=== PATIENT | male | born 1955 | race Caucasian/White ===

== ENCOUNTER 2024-09-18 07:29 | Inpatient (IN) ==
[2024-09-18] MEDS: HYDROmorphone INJ 0.5 MG/0.5 ML SYR IV STA ×2 (08:05→09:08)
[2024-09-18] MEDS: KETOROLAC TROMETHAMINE 15 MG/ML VIAL IV STA (08:05)
[2024-09-18] MEDS: diazePAM 5 MG/ML 10ML VIAL IV STA (08:05)
[2024-09-18] MEDS: ONDANSETRON INJ 2 MG/ML 2 ML VIAL IV STA (08:05)
[2024-09-18] MEDS: SODIUM CHLORIDE 0.9% 500 ML IV ONE (08:06)
--- NOTE | 2024-09-18 08:14 | Emergency Department Note ---
ED Provider Note History of Present Illness Chief Complaint: Back Injury/Pain Time Seen by Provider: 09/18/24 07:35 68-year-old male who returns to the emergency department for evaluation of ongoing and progressively worsening pain radiating down his right leg down to his calf. The patient reports that he was seen in the emergency department 2 days ago with similar symptoms. The patient has been taking tramadol and corticosteroids at home as prescribed by his PCP. The patient denies any bladder/bowel incontinence, saddle anesthesias or noticeable foot drop. The patient reports that he is finding it more difficult to walk because of weakness in his right leg as well. Patient denies any fever or chills. The patient currently rates his discomfort a 6 out of 10. Home Medications Medication Instructions Recorded Confirmed Type rosuvastatin 5 mg tablet 5 mg PO DAILY #90 tabs 04/08/24 09/18/24 Rx pantoprazole 40 mg tablet,delayed 40 mg PO DAILY #90 tabs 07/04/24 09/18/24 Rx release albuterol sulfate 90 mcg/actuation 2 puff inhalation Q6H PRN 08/27/24 09/18/24 Rx aerosol inhaler shortness of breath or wheezing #8.5 grams prednisone 20 mg tablet 40 mg (2 x 20 mg) PO DAILY 5 days 09/14/24 09/18/24 Rx #10 tabs tramadol 50 mg tablet 50 mg PO BID PRN pain #30 tabs 09/16/24 09/18/24 Rx acetaminophen 500 mg tablet 500 mg PO Q6H PRN Pain 09/18/24 09/18/24 History ibuprofen 200 mg tablet (Advil) 200 mg PO Q6H PRN Pain 09/18/24 09/18/24 History Allergies Allergy/AdvReac Type Severity Reaction Status Date / Time moxifloxacin [From Avelox] Allergy Mild Rash Unverified 09/18/24 09:27 Past Med/Surg History Problem List Intractable low back pain (Acute) Right lumbar radiculitis (Acute) Displacement of lumbar intervertebral disc with myelopathy (Acute) Osteoarthritis of right hip (Acute) Right lumbar radiculitis (Acute) Family history of GERD Current use of proton pump inhibitor Elevated TSH Screening PSA (prostate specific antigen) Screening for thyroid disorder Screening for lipid disorders Preventative health care Well adult exam Medical History Dyslipidemia Surgical History History of dental surgery tooth implants No history of previous surgery Family History Father Myocardial infarction Denies family history of Ovarian cancer Prostate cancer Bipolar disorder Colorectal cancer Social History Smoking Status: Never smoker Second Hand Exposure: No; Do You Dip or Chew Tobacco: No; Hx Alcohol Use: Yes Alcohol type: wine and hard liquor Hx Substance Use: Yes Last Used Substance: Hours (ago) Preferred Language: Luxembourger Communication Ability: Effective Visual Impairment: No Limitations Hearing Ability: Normal Assurance Manager Required: No Beliefs That Will Affect Care: None marital status: Current Living Situation: Spouse current occupational status: employed Feels Safe at Home: Yes Dental Care, Regularly: Yes Physical Activity Frequency: Daily Seatbelt Use: always Assistive Devices: Glasses Physical Exam Vital Signs Vital Signs - 24 hr 09/18/24 07:24 09/18/24 07:35 09/18/24 07:35 Temperature 36.8 C Temperature Source Oral Pulse Rate 66 Pulse Rate from SpO2 Sensor Respiratory Rate 20 Blood Pressure 154/91 H 154/91 H 154/91 H Blood Pressure Mean 112 124 124 Pulse Oximetry 95 Sepsis Recent Fever Within 48 Hours No Sepsis New/Unexplained Change in Mental Status No Sepsis Action Taken by Nursing No Action Required 09/18/24 07:39 09/18/24 07:54 09/18/24 08:00 Temperature Temperature Source Pulse Rate 70 67 Pulse Rate from SpO2 Sensor 68 Respiratory Rate 13 Blood Pressure 150/88 H Blood Pressure Mean 110 Pulse Oximetry 93 Sepsis Recent Fever Within 48 Hours Sepsis New/Unexplained Change in Mental Status Sepsis Action Taken by Nursing 09/18/24 08:00 09/18/24 08:00 09/18/24 08:00 Temperature Temperature Source Pulse Rate Pulse Rate from SpO2 Sensor Respiratory Rate Blood Pressure 150/88 H 150/88 H 150/88 H Blood Pressure Mean 110 110 110 Pulse Oximetry Sepsis Recent Fever Within 48 Hours Sepsis New/Unexplained Change in Mental Status Sepsis Action Taken by Nursing 09/18/24 08:00 09/18/24 09:00 09/18/24 09:00 Temperature Temperature Source Pulse Rate 67 67 Pulse Rate from SpO2 Sensor 67 68 Respiratory Rate 15 17 Blood Pressure 149/84 H Blood Pressure Mean 96 Pulse Oximetry 95 97 Sepsis Recent Fever Within 48 Hours Sepsis New/Unexplained Change in Mental Status Sepsis Action Taken by Nursing 09/18/24 10:06 09/18/24 11:00 09/18/24 11:00 Temperature Temperature Source Pulse Rate Pulse Rate from SpO2 Sensor 66 69 Respiratory Rate Blood Pressure 144/82 H Blood Pressure Mean 93 Pulse Oximetry 95 94 Sepsis Recent Fever Within 48 Hours Sepsis New/Unexplained Change in Mental Status Sepsis Action Taken by Nursing 09/18/24 11:42 09/18/24 12:00 09/18/24 12:03 Temperature Temperature Source Pulse Rate Pulse Rate from SpO2 Sensor 69 71 Respiratory Rate Blood Pressure 133/85 Blood Pressure Mean 97 Pulse Oximetry 95 92 Sepsis Recent Fever Within 48 Hours Sepsis New/Unexplained Change in Mental Status Sepsis Action Taken by Nursing 09/18/24 13:00 09/18/24 13:00 09/18/24 13:00 Temperature Temperature Source Pulse Rate Pulse Rate from SpO2 Sensor 70 Respiratory Rate Blood Pressure 143/84 H 143/84 H Blood Pressure Mean 98 98 Pulse Oximetry 93 Sepsis Recent Fever Within 48 Hours Sepsis New/Unexplained Change in Mental Status Sepsis Action Taken by Nursing CONSTITUTIONAL: Healthy and well nourished. Patient appears in mild discomfort. HEENT: Mucous membranes are dry. No scleral icterus or conjunctival injection. RESPIRATORY: Clear to auscultation bilaterally with no wheezing, crackles, rhonchi or stridor. CARDIOVASCULAR: Regular rate and rhythm with no murmurs, rubs or gallops. GASTROINTESTINAL: Bowel sounds present in all quadrants. Abdomen is soft and nontender to palpation. MUSCULOSKELETAL: Examination shows the patient sitting in a Semi-Gomez's position with a blanket propped under his knee, holding his hip and knee at approximately 60 degrees of flexion. Any attempts to lower the patient into a full supine position causes notable discomfort, similar to his presentation from 2 days ago. Negative logroll of the right hip. Patient has tenderness to palpation through the lower lumbar spine and paraspinous muscle without obvious spasm. No soft tissue changes or erythema noted on the lower back region. Ankle plantar and dorsiflexion strength is 4 out of 5 bilaterally. INTEGUMENTARY: No rash or other significant dermatologic conditions noted. HEMATOLOGIC: No ecchymosis or petechiae. PSYCHIATRIC: Positive affect. NEUROLOGIC: Right lower extremity is sensory intact with deep tendon reflexes 1+ and symmetric bilaterally. Course Course Patient history and physical exam were performed. Nurses notes were reviewed. It is noted that I evaluated this patient in the emergency department 2 days ago. It is also noted that the patient had very difficult pain control in order to undergo CT imaging of his back and right hip, which showed a notable disc bulge at L4-5 and moderate osteoarthritis of the right hip. The patient essentially had to have the CT performed while laying in the left lateral recumbent position secondary to notable pain. The patient did require several rounds of IV analgesics and Valium in order to undergo CT imaging. Given the patient's worsening condition today, I did indicate that an MRI would be warranted, and that we would have to perform a similar pain management procedure in order to be able to perform the MRI. The patient was in agreement with this plan. IV access was established, and additional baseline labs were drawn. The patient was hydrated with normal saline 500 cc bolus, and administered IV Dilaudid, Toradol, Zofran and Valium. Review of labs showed a normal CBC, CMP and urinalysis other than 3+ glucosuria. With the medications provided, the patient was able to tolerate MRI imaging, with noncontrast MRI of the lumbar spine showing a diffuse disc bulge at L4-5, measuring 2.5 mm, with a right foraminal herniation/osteophyte complex measuring 5.9 mm, causing marked neuroforaminal stenosis. Patient has degenerative changes at other spine levels as well. Findings were discussed with the patient. I did discuss possible options for care, including surgical versus nonsurgical treatment, as well as outpatient versus inpatient management. The patient initially indicated that he would prefer to go home, however realized that he would not likely be able to ambulate at home like he did prior to his return to the emergency department today. We did a trial ambulation with a walker which was completely unsuccessful, as the patient was unable to apply any weight to the right lower extremity, and could only stand up in a forward flexed position. The patient then agreed to admission for intractable back pain. The case was also discussed with Dr. Ledesma, ED attending physician, who recommended consultation with the spine surgeon on- call. I did reach out to Dr. Cannon, who recommended admission for pain management, and he would consult the patient for possible pain management versus surgical management. He did recommend administering IV Decadron every 8 hours, along with oral Lyrica for symptomatic relief. At this point, the case was then discussed with the [facility] hospitalist team, who evaluated the patient and agrees with admission. Please see their dictation, as well as spine surgery dictations for further treatment and final disposition. Prior to transfer of care to the hospitalist service, the patient continued to report adequate pain control. Administered Medications Acetaminophen (Acetaminophen 500 Mg Tab) 1,000 mg PO Q8H ALEXEI Stop: 10/18/24 13:29 Last Admin: 09/18/24 15:06 Dose: 1,000 mg Documented By: YOON Discontinued Medications Dexamethasone Sodium Phosphate (DexamethasonePf 10 Mg/Ml Vial) 10 mg IV NOW ONE Stop: 09/18/24 12:43 Last Admin: 09/18/24 12:57 Dose: 10 mg Documented By: SINDY Diazepam (Diazepam 5 Mg/Ml 10ml Vial) 5 mg IV NOW STA Stop: 09/18/24 07:54 Last Admin: 09/18/24 08:05 Dose: 5 mg Documented By: SINDY Fentanyl Citrate (Fentanyl Citrate Pf 100 Mcg/2 Ml Vial) 50 mcg IV NOW STA Stop: 09/18/24 09:05 Last Admin: 09/18/24 09:12 Dose: Not Given Documented By: SINDY Hydromorphone HCl (Hydromorphone Inj 0.5 Mg/0.5 Ml Syr) 0.5 mg IV NOW STA Stop: 09/18/24 07:54 Last Admin: 09/18/24 08:05 Dose: 0.5 mg Documented By: SINDY Hydromorphone HCl (Hydromorphone Inj 0.5 Mg/0.5 Ml Syr) 0.5 mg IV NOW STA Stop: 09/18/24 09:06 Last Admin: 09/18/24 09:08 Dose: 0.5 mg Documented By: SINDY Sodium Chloride (Nss) 500 mls @ 999 mls/hr IV .Q31M ONE Stop: 09/18/24 08:23 Last Infusion: 09/18/24 13:09 Dose: Infused Documented By: Admin: 09/18/24 08:06 Dose: 999 mls/hr Documented By: SINDY Ketorolac Tromethamine (Ketorolac Tromethamine 15 Mg/Ml Vial) 15 mg IV NOW STA Stop: 09/18/24 07:54 Last Admin: 09/18/24 08:05 Dose: 15 mg Documented By: SINDY Ondansetron HCl (Ondansetron Inj 2 Mg/Ml 2 Ml Vial) 4 mg IV NOW STA Stop: 09/18/24 07:54 Last Admin: 09/18/24 08:05 Dose: 4 mg Documented By: SINDY Pregabalin (Pregabalin 50 Mg Cap) 50 mg PO NOW STA Stop: 09/18/24 12:43 Last Admin: 09/18/24 12:57 Dose: 50 mg Documented By: SINDY Medical Decision Making Medical Records Attestation: I reviewed the patient's medical records. Home Medications was personally reviewed by me Laboratory Data Attestation: I reviewed the patient's lab results. 09/18/24 07:59 09/18/24 07:59 Lab Results 09/18/24 09/18/24 Range/Units 07:59 13:08 WBC 8.16 (4.8-10.8) K/ul RBC 5.55 (4.70-6.10) M/uL Hgb 16.6 (14.0-18.0) g/dl Hct 48.1 (42.0-52.0) % MCV 86.7 (80.0-100.0) fL MCH 29.9 (25.0-34.0) pg MCHC 34.5 (32.0-36.0) g/dL RDW Std Deviation 40.0 (36.4-46.3) fL RDW Coeff of Dangelo 12.8 (11.5-14.5) % Plt Count 170 (130-400) K/uL MPV 10.5 (9.4-12.4) fL Immature Gran % (Auto) 0.2 % Neut % (Auto) 66.8 % Lymph % (Auto) 25.5 % Haskell % (Auto) 6.3 % Eos % (Auto) 0.5 % Baso % (Auto) 0.7 % Neut # (Auto) 5.45 (1.40-6.50) K/uL Lymph # (Auto) 2.08 (1.20-3.40) K/uL Haskell # (Auto) 0.51 (0.11-0.59) K/uL Eos # (Auto) 0.04 (0.00-0.50) K/uL Baso # (Auto) 0.06 (0.00-0.20) K/uL Immature Gran # (Auto) 0.02 (0.01-0.20) K/uL Sodium 140 (136-145) mmol/L Potassium 3.7 (3.5-5.1) mmol/L Chloride 108 H (98-107) mmol/L Carbon Dioxide 27 (21-32) mmol/L Anion Gap 5 (3-11) BUN 17 (6-23) mg/dl Creatinine 0.86 (0.6-1.4) mg/dl Est Cr Clr Drug Dosing 87.2 ml/min eGFR 95.50 BUN/Creatinine Ratio 19.8 (10-20) Glucose 108 H (70-99(Fasting)) mg/dl Calcium 9.0 (8.6-10.3) mg/dl Total Bilirubin 0.9 (0.2-1.0) mg/dl AST 21 (13-39) U/L ALT 35 (7-52) U/L Alkaline Phosphatase 44 (34-104) U/L Total Protein 6.5 (6.0-8.3) gm/dl Albumin 4.0 (3.4-5.0) gm/dl Globulin 2.5 (2.5-4.0) gm/dl Albumin/Globulin Ratio 1.6 (0.9-2) Urine Color Yellow Urine Appearance Clear (Clear) Urine pH 6.0 (4.5-7.5) Ur Specific Kopperl 1.027 (1.000-1.030) Urine Protein Negative (Negative) Urine Glucose (UA) 3+ H (Negative) Urine Ketones Trace H (Negative) Urine Blood Negative (Negative) Urine Nitrite Negative (Negative) Urine Bilirubin Negative (Negative) Urine Urobilinogen Negative (Negative) Ur Leukocyte Esterase Negative (Negative) Imaging Data Attestation: I personally reviewed and interpreted this imaging study as follows: My Impression: My interpretation of a noncontrast MRI of the lumbar spinen shows a diffuse disc bulge at L4-5, measuring 2.5 mm, with a right foraminal herniation/osteophyte complex measuring 5.9 mm, causing marked neuroforaminal stenosis. Patient has degenerative changes at other spine levels as well. Radiologist report was also reviewed with concurrence. Radiologist's Impression: Lumbar Spine MRI 09/18/24 07:53 EXAM: MR lumbar spine wo con CLINICAL HISTORY: Severe LBP, R lumbar radiculitis. TECHNIQUE: [id number] MRI of the lumbar spine was performed without the administration of intravenous contrast. Sequences obtained include sagittal T1-weighted, T2-weighted, STIR (Short Tau Inversion Recovery), and axial T1 /OBX.5.1.1OBX.5.1.2 T2-weighted sequences. Images were sent through PACS for diagnostic interpretation./OBX.5.1.2/OBX.5.1 COMPARISON: Prior CT lumbar spine dated 09/16/2024 was reviewed. FINDINGS: Vertebral Alignment: Normal alignment of the lumbar spine without evidence of fracture or malalignment. No evidence of scoliosis is observed. Straightened lumbar lordosis likely denoting myospasm. Vertebral Bodies and Intervertebral Discs: Minimal anterior height reduction of T11 body. Normal other vertebral body height, no fracture identified. No lytic or sclerotic lesions. Small marginal osteophytes and minimal fatty marrow degeneration of the opposing vertebral endplates. Mottled reduced T1 bone marrow signal suggesting osteoprosis. Intervertebral discs demonstrate desiccation at all levels. [id number] analysis: T12-L1: There is no significant disc pathology. No spinal canal stenosis. No neural foraminal stenosis.No ligamentum flavum hypertrophy and facet joint arthropathy. L1-L2: There is no significant disc pathology. No spinal canal stenosis. No neural foraminal stenosis.No ligamentum flavum hypertrophy and facet joint arthropathy. L2-L3: There is no significant disc pathology. No spinal canal stenosis. No neural foraminal stenosis.No ligamentum flavum hypertrophy and facet joint arthropathy. L3-L4: There is a diffuse disc bulge measuring 2 mm, effacing the adjacent epidural fat and causing bilateral mild neural foraminal stenosis. No spinal canal stenosis. No ligamentum flavum hypertrophy. Mild bilateral facet joint arthropathy. L4-L5: There is a diffuse disc bulge measuring 2.5 mm with right foraminal herniation/osteophyte complex measures 5.9 mm, effacing the ventral epidural fat, abutting the theca and causing marked right and mild left neural foraminal stenosis. No spinal canal stenosis. No ligamentum flavum hypertrophy. Mild bilateral facet joint arthropathy. L5-S1: There is a small focal central disc protrusion measuring 1.5 mm, partially encroaching upon the ventral epidural fat, not touching the theca or inducing spinal/neural foramen compromise. No spinal canal stenosis. No neural foraminal stenosis.No ligamentum flavum hypertrophy. Mild bilateral facet joint arthropathy. Spinal Cord and Nerve Roots: Conus medullaris terminates at the L1 level without abnormality. Nerve roots appear unremarkable bilaterally. The lower thoracic spinal cord, conus medullaris, and cauda equina nerve roots are unremarkable. Soft Tissues: Paraspinal soft tissues appear normal without evidence of abnormal signal intensity or mass lesions. IMPRESSION: 1. 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 2. Mottled reduced T1 bone marrow signal suggesting osteoprosis. Minimal anterior height reduction of T11 body. Electronically signed by Angélica Hernández 09-18-2024 10:36 AM MDM Narrative See ED Course section for further details of today's visit. The patient presents with complaint of intractable lower back pain. It is possible that the patient injured his back while he was vacationing 2 weeks ago. He has now been seen multiple times at an outpatient urgent care clinic, his PCP, and twice in the emergency department with intractable back pain. Since his last ED evaluation 2 days ago, the patient has been unable to ambulate at home, therefore returns via EMS for further evaluation. We were able to perform a noncontrast MRI of the lumbar spine today, showing notable right neuroforaminal stenosis secondary to a diffuse disc bulge with herniation/osteophyte complex, measuring 5.9 mm. The case was discussed with our spine surgeon on-call, who did recommend admission for pain management, and he will discuss further pain management versus operative management. The patient was in agreement with this plan as well. Labs today are not suggestive of infectious etiology. The patient is not febrile, nor does he have any skin findings or laboratory findings to suggest infection or sepsis. The case was also discussed with Dr. Ledesma, ED attending physician, who agrees with admission. Impression Displacement of lumbar intervertebral disc with myelopathy, Right lumbar radiculitis, Intractable low back pain Discharge Plan Visit Data Chief Complaint: Back Injury/Pain ED Provider: Jesus Ledesma ED Midlevel Provider: Erwin Gold Discharge Problem: Displacement of lumbar intervertebral disc with myelopathy, Right lumbar radiculitis, Intractable low back pain Patient Disposition: Admitted As Inpatient Discharge Instructions Interventions: ED Discharge Assessment Last Done: 09/18/24 14:12
[2024-09-18 08:28] LABS: Albumin Globulin Ratio 1.6 (0.9-2); BUN Creatinine Ratio 19.8 (10-20); Bilirubin,Total 0.9 mg/dl (0.2-1.0); Creatinine Clr Calc Pharmacy 87.2 ml/min; Globulin 2.5 gm/dl (2.5-4.0); Potassium 3.7 mmol/L (3.5-5.1); Total Protein 6.5 gm/dl (6.0-8.3)
[2024-09-18 08:29] LABS: Basophils # (auto) 0.06 K/uL (0.00-0.20); Basophils % (auto) 0.7 %; Eosinophils # (auto) 0.04 K/uL (0.00-0.50); Eosinophils % (auto) 0.5 %; Hematocrit (blood only) 48.1 % (42.0-52.0); Hemoglobin 16.6 g/dl (14.0-18.0); Immature Granulocytes # (auto) 0.02 K/uL (0.01-0.20); Immature Granulocytes % (auto) 0.2 %; Lymphocytes # (auto) 2.08 K/uL (1.20-3.40); Lymphocytes % (auto) 25.5 %; Mean Corpuscular Hemoglobin 29.9 pg (25.0-34.0); Mean Corpuscular Hgb Conc 34.5 g/dL (32.0-36.0); Mean Corpuscular Volume 86.7 fL (80.0-100.0); Mean Platelet Volume 10.5 fL (9.4-12.4); Monocytes # (auto) 0.51 K/uL (0.11-0.59); Monocytes % (auto) 6.3 %; Neutrophils # (auto) 5.45 K/uL (1.40-6.50); Neutrophils % (auto) 66.8 %; Platelet Count 170 K/uL (130-400); RDW Coefficient of Variation 12.8 % (11.5-14.5); Red Blood Count 5.55 M/uL (4.70-6.10); White Blood Count 8.16 K/ul (4.8-10.8)
[2024-09-18] MEDS: fentaNYL citrate PF 100 MCG/2 ML VIAL IV STA (09:12)
--- NOTE | 2024-09-18 10:39 | Magnetic Resonance Report ---
EXAM: MR lumbar spine wo con CLINICAL HISTORY: Severe LBP, R lumbar radiculitis. TECHNIQUE: [id number] MRI of the lumbar spine was performed without the administration of intravenous contrast. Sequences obtained include sagittal T1-weighted, T2-weighted, STIR (Short Tau Inversion Recovery), and axial T1 /OBX.5.1.1OBX.5.1.2 T2-weighted sequences. Images were sent through PACS for diagnostic interpretation./OBX.5.1.2/OBX.5.1 COMPARISON: Prior CT lumbar spine dated 09/16/2024 was reviewed. FINDINGS: Vertebral Alignment: Normal alignment of the lumbar spine without evidence of fracture or malalignment. No evidence of scoliosis is observed. Straightened lumbar lordosis likely denoting myospasm. Vertebral Bodies and Intervertebral Discs: Minimal anterior height reduction of T11 body. Normal other vertebral body height, no fracture identified. No lytic or sclerotic lesions. Small marginal osteophytes and minimal fatty marrow degeneration of the opposing vertebral endplates. Mottled reduced T1 bone marrow signal suggesting osteoprosis. Intervertebral discs demonstrate desiccation at all levels. Ecrrw-ca-pwvwe analysis: T12-L1: There is no significant disc pathology. No spinal canal stenosis. No neural foraminal stenosis.No ligamentum flavum hypertrophy and facet joint arthropathy. L1-L2: There is no significant disc pathology. No spinal canal stenosis. No neural foraminal stenosis.No ligamentum flavum hypertrophy and facet joint arthropathy. L2-L3: There is no significant disc pathology. No spinal canal stenosis. No neural foraminal stenosis.No ligamentum flavum hypertrophy and facet joint arthropathy. L3-L4: There is a diffuse disc bulge measuring 2 mm, effacing the adjacent epidural fat and causing bilateral mild neural foraminal stenosis. No spinal canal stenosis. No ligamentum flavum hypertrophy. Mild bilateral facet joint arthropathy. L4-L5: There is a diffuse disc bulge measuring 2.5 mm with right foraminal herniation/osteophyte complex measures 5.9 mm, effacing the ventral epidural fat, abutting the theca and causing marked right and mild left neural foraminal stenosis. No spinal canal stenosis. No ligamentum flavum hypertrophy. Mild bilateral facet joint arthropathy. L5-S1: There is a small focal central disc protrusion measuring 1.5 mm, partially encroaching upon the ventral epidural fat, not touching the theca or inducing spinal/neural foramen compromise. No spinal canal stenosis. No neural foraminal stenosis.No ligamentum flavum hypertrophy. Mild bilateral facet joint arthropathy. Spinal Cord and Nerve Roots: Conus medullaris terminates at the L1 level without abnormality. Nerve roots appear unremarkable bilaterally. The lower thoracic spinal cord, conus medullaris, and cauda equina nerve roots are unremarkable. Soft Tissues: Paraspinal soft tissues appear normal without evidence of abnormal signal intensity or mass lesions. IMPRESSION: 1. 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 2. Mottled reduced T1 bone marrow signal suggesting osteoprosis. Minimal anterior height reduction of T11 body. Electronically signed by Angélica Hernández 09-18-2024 10:36 AM
[2024-09-18] MEDS: dexAMETHasone**PF** 10 MG/ML VIAL IV ONE (12:57)
[2024-09-18] MEDS: PREGABALIN 50 MG CAP PO STA (12:57)
[2024-09-18] MEDS ORDERED: CYCLOBENZAPRINE HCL 10 MG TAB PO PRN (13:24)
--- NOTE | 2024-09-18 13:40 | Orthopedic Progress Note ---
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 24-48 hours of IV decadron, will hold NSAIDs in case any need for intervention, Lyrica 75mg BID, tizanidine prn muscle spasms. I discussed the nature of nerve compression and imaging findings. Hopefully he will respond to medication management. Will also consult physical therapy to help mobilize and learn home exercises. I have also placed a pain management consult to discuss the possibility of epidural injections. We briefly discussed surgery however will attempt to maximize other treatment options before considering surgery. Will follow along while in hospital. Subjective CC: Right Leg Pain HPI: Pleasant 68 year old gentleman presents to ER and admitted by hospitalist. He began experiencing pain originating in lumbar spine and radiating first into the hip region and progressing down the leg into thigh, anterior knee and then medial calf pain. He does not describe weakness, however severe pain limits ability to ambulate. Normal bladder function. He has been ambulating with walking sticks and in a forward flexed posture. No prior spine issues other than occasional back pain. Has been taking steroid at home, saw some improvement yesterday however pain worse today. He was recently evaluated by PCP earlier in week and ER two days ago. Review of Systems All systems reviewed & are unremarkable except as noted in HPI & below. Physical Exam 5/5 L2-S1 myotomes bilateral LE SILT L2-S1 with exception of decreased sensation right L4 No ankle clonus Constitutional WD/WN, vitals as above Neck normal visual inspection Respiratory normal respiratory effort Musculoskeletal Extremities: extremities normal to inspection Results & Data Results & Data Laboratory Results . Diagnostic Findings MRI lumbar spine available for review and interpreted personally. Significant motion artifact, severe right L4-5 foraminal stenosis due to osteophyte and disc bulge. 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
--- NOTE | 2024-09-18 13:47 | History & Physical Report ---
Date of Service September 18, 2024 Assessment & Plan (1) Right lumbar radiculitis: Plan This is an 68 year old male with past medical history of OA, HLD who presented to the ED on 09/18 for continued complaints of right back/hip/leg pain. Patient w/ failure of outpatient management of pain including Tylenol, Ibuprofen, Prednisone, and Tramadol. #Right lumbar Radiculitis Hip/pelvic CT 09/16 - mild-moderate OA right hip joint. No fractures within pelvis/hip Lumbar CT 09/16 - right lateral disc protrusion at L4-L5 could result in right L4 or L5 radiculopathy in appropriate clinical context. Lumbar MRI 09/18 - mild lumbar spondylodegenerative changes w/ disc pathologies at L3/4 down to L5/S1. More evident at L4-L5 w/ right foraminal herniation/osteophyte complex causing marked right neural foraminal stenosis. Mottled reduced T1 bone marrow signal suggesting osteoporosis. minimal anterior height reduction of T11 body Orthospine consulted, appreciate recommendations Pain management consulted, appreciate recommendations Continue scheduled Tylenol and ibuprofen Lyrica 75mg BID Dexamethasone 10mg IV q8h Oxycodone 5mg q4h prn Flexeril 10mg BID prn PT/OT consulted Chronic conditions: HLD: statin DVT prophylaxis: SCD's, hold chemical in event of surgery Code: DNR/DNI NPO after midnight in event of surgical intervention Case discussed w/ Dr. Darnell at time of admission. History of Present Illness Primary Care Provider: Renan Davila MD This is an 68 year old male with past medical history of OA, HLD who presented to the ED on 09/18 for continued complaints of right back/hip/leg pain. The patient was seen and examined, present. Patient reports that ~ 1 week ago he walked 4 miles at a quicker pace then usual. He then reports the following day he woke up in pain. He saw his PCP this past Thursday for this and was prescribed corticosteroids and tramadol. He was alternating Tylenol and ibuprofen every 4 hours as well. He then saw his PCP this past Thursday for continued symptoms and was referred for an x-ray. He was then referred to the ER from x-ray as he could not lie flat to take the imaging. He was then discharged. He reports this morning he was sleeping on the couch as he cannot get into bed at this time and could not get up to walk. EMS was then summoned and he was transported here. He reports he has attempted to walk with a walker in his room but is only able to walk a few steps and has to be hunch over. He reports it is painful to walk. He reports his pain 6/10. He denies any incontinence of bladder or bowel. He does report some right logan numbness which he stated was new for him today. While in the ED he underwent a lumbar MRI that revelaed L4-L5 foraminal herniation/ostephyte complex causing maked right neural foraminal stenosis. He was given dexamethasone, Toradol, Dilaudid, Lyrica, and Valium in the ED. Code status discussed and he reports he is a DNR/DNI status. Allergies Allergy/AdvReac Type Severity Reaction Status Date / Time moxifloxacin [From Avelox] Allergy Mild Rash Unverified 09/18/24 09:27 Home Medications Medication Instructions Recorded Confirmed Type rosuvastatin 5 mg tablet 5 mg PO DAILY #90 tabs 04/08/24 09/18/24 Rx pantoprazole 40 mg tablet,delayed 40 mg PO DAILY #90 tabs 07/04/24 09/18/24 Rx release albuterol sulfate 90 mcg/actuation 2 puff inhalation Q6H PRN 08/27/24 09/18/24 Rx aerosol inhaler shortness of breath or wheezing #8.5 grams prednisone 20 mg tablet 40 mg (2 x 20 mg) PO DAILY 5 days 09/14/24 09/18/24 Rx #10 tabs tramadol 50 mg tablet 50 mg PO BID PRN pain #30 tabs 09/16/24 09/18/24 Rx acetaminophen 500 mg tablet 500 mg PO Q6H PRN Pain 09/18/24 09/18/24 History ibuprofen 200 mg tablet (Advil) 200 mg PO Q6H PRN Pain 09/18/24 09/18/24 History methylprednisolone 4 mg tablet See Rx Instructions .Route 09/19/24 Rx (Medrol) .COMPLEX 18 days #63 tabs pregabalin 75 mg capsule (Lyrica) 75 mg PO BID #60 caps 09/19/24 Rx tizanidine 4 mg tablet 4 mg PO TID PRN muscle spasticity 02/24/25 Rx 10 days #30 tabs Past Med/Surg History Problem List Intractable low back pain (Acute) Right lumbar radiculitis (Acute) Displacement of lumbar intervertebral disc with myelopathy (Acute) Osteoarthritis of right hip (Acute) Right lumbar radiculitis (Acute) Family history of GERD Current use of proton pump inhibitor Elevated TSH Screening PSA (prostate specific antigen) Screening for thyroid disorder Screening for lipid disorders Preventative health care Well adult exam Medical History Dyslipidemia Surgical History History of dental surgery tooth implants No history of previous surgery Family History Father Myocardial infarction Denies family history of Ovarian cancer Prostate cancer Bipolar disorder Colorectal cancer Social History Smoking Status: Never smoker Second Hand Exposure: No; Do You Dip or Chew Tobacco: No; Hx Alcohol Use: Yes Alcohol type: wine and hard liquor Hx Substance Use: Yes Last Used Substance: Hours (ago) Preferred Language: Argentine Communication Ability: Effective Visual Impairment: No Limitations Hearing Ability: Normal Front Facer Required: No Beliefs That Will Affect Care: None marital status: Current Living Situation: Spouse current occupational status: employed Feels Safe at Home: Yes Dental Care, Regularly: Yes Physical Activity Frequency: Daily Seatbelt Use: always Assistive Devices: None Physical Exam Constitutional: WD/WN, vitals as above Eyes: PERRL, conjunctivae normal, anicteric sclerae Respiratory: normal respiratory effort, lungs clear to auscultation Cardiovascular: RRR, no murmur, no edema Musculoskeletal: 5/5 strength in b/l lower extremities Psychiatric: A+Ox3, euthymic affect Results & Data Results & Data Vital Signs (Past 12 Hours) Vital Signs Temp Pulse Resp BP Pulse Ox 09/18/24 07:39 70 09/18/24 07:24 36.8 C 66 20 154/91 H 95 Supervising Physician Co-Signing Physician Notes I personally saw and examined the patient. I independently reviewed the labs, EKG, imaging, problem list, medication list, past medical history and family history. I verified all gutierres points and agree with Arpita Bragg PA-C with the following exceptions and/or additions: 68-year-old male presents to the ER with right leg pain radiating from his lumbar spine to his hip region and medial part of his lower leg. No fever or chills. No recent weight loss. No loss of bladder or bowel control or perianal numbness. O/E HS RRR, no murmurs, Chest CTAB, Abdo SNT, pain and mild numbness present in an L4 distribution on his right leg, right leg exam limited by pain but appears to have normal hip flexion, ankle dorsi and plantarflexion A/P Lumbar radiculopathy - orthopedic wished to avoid NSAIDs in case of need of surgery, dexamethasone, acetaminophen, gabapentin switched to Lyrica by orthospine team, oxycodone as needed PG Care Time/CCT Total # of Minutes Spent Total Time Spent with Patient: Total time spent is greater than 50% in coordination of care (as documented) at patient's floor/unit and/or counseling patient: Coding Level of Care Code 72504 INT INP/OBS CARE MIN Diagnoses Right lumbar radiculitis M54.16
[2024-09-18 13:49] LABS: Appearance Urine Clear (Clear); Bilirubin Urine Negative (Negative); Blood Urine Negative (Negative); Color Urine Yellow; Glucose Urine UA 3+ (Negative); Ketones Urine Trace (Negative); Leukocyte Esterase Urine Negative (Negative); Nitrite Urine Negative (Negative); Protein Urine Negative (Negative); Specific Gravity Urine 1.027 (1.000-1.030); Urobilinogen Urine Negative (Negative)
[2024-09-18] MEDS ORDERED: IBUPROFEN 200 MG/10 ML UDC PO SCH (14:00)
[2024-09-18] MEDS ORDERED: IBUPROFEN 600 MG TAB PO SCH ×2 (14:00→21:00)
--- NOTE | 2024-09-18 14:10 | Emergency Department Note ---
ED Visit Note I was consulted in regards to the patient's presentation and plan of care by the Advanced Practice Provider. I engaged in a detailed/meaningful discussion with the Advanced Practice Provider in regards to this patient's workup and plan of care. I performed a substantiative portion of the medical decision making following discussion with the Advanced Practice Provider. Please see the Advanced Practice Provider's separate documentation for full details of the patient's visit. I agree with the assessment and plan of Erwin Gold PA-C. Jesus Ledesma, DO Emergency Medicine .
[2024-09-18] MEDS: ACETAMINOPHEN 500 MG TAB PO SCH (15:06)
[2024-09-18] MEDS: dexAMETHasone 10 MG in SYRINGE 0 ML IV SCH (16:01)
[2024-09-18] MEDS: PREGABALIN 75 MG CAP PO SCH (20:42)
[2024-09-18] MEDS ORDERED: GABAPENTIN 100 MG CAP PO SCH (21:00)
[2024-09-18] MEDS: oxyCODONE HCL IR 5 MG TAB (IMMEDIATE RELEASE) PO PRN (21:46)
--- NOTE | 2024-09-19 08:53 | Pain Management Consultation ---
Date of Consultation September 19, 2024 Assessment & Plan (1) Right lumbar radiculitis: Plan 1. Continue Lyrica 75mg BID, Oxycodone 5mg Q4 PRN, and Tizanidine 4mg TID. 2. Continue IV Dexamethasone. 3. There is a right sided disc herniation at L4-L5 that is the likely contributor to his symptoms. Recommend continuation of medications and physical therapy. If not improved, could consider a lumbar epidural steroid injection on an outpatient basis. Patient is in agreement with the plan. Thank you for the consultation. Please contact with any questions or concerns. History of Present Illness Attending Physician: Pavel Darnell MD History of Present Illness This is a 68-year-old male has been admitted to the [facility] for pain along the lateral aspect of the right calf. He describes a deep aching pain. There is minimal pain in the low back. No pain in the thigh. Pain is aggravated with weightbearing and standing up straight. Hunching forward and using a walker does provide mild pain relief. Pain started about 1 week ago. He was walking 4 miles and the next day he developed the pain. He did try steroids and tramadol as well as Tylenol and ibuprofen without any significant pain relief. He is unable to stand and walk so EMS to transport him to [facility]. No bowel/bladder incontinence, saddle anesthesia, foot drop, leg weakness, falls. Case discussed with Dr. Danica Erwin Allergies Allergy/AdvReac Type Severity Reaction Status Date / Time moxifloxacin [From Avelox] Allergy Mild Rash Unverified 09/18/24 09:27 Home Medications Medication Instructions Recorded Confirmed Type rosuvastatin 5 mg tablet 5 mg PO DAILY #90 tabs 04/08/24 09/18/24 Rx pantoprazole 40 mg tablet,delayed 40 mg PO DAILY #90 tabs 07/04/24 09/18/24 Rx release albuterol sulfate 90 mcg/actuation 2 puff inhalation Q6H PRN 08/27/24 09/18/24 Rx aerosol inhaler shortness of breath or wheezing #8.5 grams prednisone 20 mg tablet 40 mg (2 x 20 mg) PO DAILY 5 days 09/14/24 09/18/24 Rx #10 tabs tramadol 50 mg tablet 50 mg PO BID PRN pain #30 tabs 09/16/24 09/18/24 Rx acetaminophen 500 mg tablet 500 mg PO Q6H PRN Pain 09/18/24 09/18/24 History ibuprofen 200 mg tablet (Advil) 200 mg PO Q6H PRN Pain 09/18/24 09/18/24 History Patient History Medical History Dyslipidemia Surgical History History of dental surgery tooth implants No history of previous surgery Family History Father Myocardial infarction Denies family history of Ovarian cancer Prostate cancer Bipolar disorder Colorectal cancer Social History Smoking Status: Never smoker Second Hand Exposure: No; Do You Dip or Chew Tobacco: No; Hx Alcohol Use: Yes Alcohol type: wine and hard liquor Hx Substance Use: Yes Last Used Substance: Hours (ago) Preferred Language: Armenian Communication Ability: Effective Visual Impairment: No Limitations Hearing Ability: Normal Boom Supervisor Required: No Beliefs That Will Affect Care: None marital status: Current Living Situation: Spouse current occupational status: employed Feels Safe at Home: Yes Dental Care, Regularly: Yes Physical Activity Frequency: Daily Seatbelt Use: always Assistive Devices: Glasses Physical Exam Physical Exam: GENERAL: This is a 68 year old male in no acute distress. Sitting the a chair eating breakfast. HEAD/FACE: Normocephalic and atraumatic. EYES: No drainage or conjunctival injection. ENT: Nose without bleeding or discharge. Oral mucosa moist. RESPIRATORY: Patient with unlabored breathing. No signs of respiratory distress. CHEST/AXILLA: Chest movement symmetrical. No deformities noted. ABDOMEN/GI: No distension BACK: Moves without difficulty. There is no midline, facet joint or SI joint tenderness. No myofascial spasm or tenderness. SKIN: Day, warm and dry. No rash noted. MS/EXTREMITY: 5/5 strength of the lower extremities. Negative straight leg raise. Full range of motion of the right hip. No tenderness of the right greater trochanteric bursa. NEURO: Alert and appears oriented. Speech is fluent. Cranial Nerves are grossly intact. PSYCH: Alert, pleasant, affect is calm Results (Pain Clinic) Diagnostic Review MRI Findings: MR lumbar spine wo con CLINICAL HISTORY: Severe LBP, R lumbar radiculitis. TECHNIQUE: [id number] MRI of the lumbar spine was performed without the administration of intravenous contrast. Sequences obtained include sagittal T1-weighted, T2-weighted, STIR (Short Tau Inversion Recovery), and axial T1 /OBX.5.1.1OBX.5.1.2 T2-weighted sequences. Images were sent through PACS for diagnostic interpretation./OBX.5.1.2/OBX.5.1 COMPARISON: Prior CT lumbar spine dated 09/16/2024 was reviewed. FINDINGS: Vertebral Alignment: Normal alignment of the lumbar spine without evidence of fracture or malalignment. No evidence of scoliosis is observed. Straightened lumbar lordosis likely denoting myospasm. Vertebral Bodies and Intervertebral Discs: Minimal anterior height reduction of T11 body. Normal other vertebral body height, no fracture identified. No lytic or sclerotic lesions. Small marginal osteophytes and minimal fatty marrow degeneration of the opposing vertebral endplates. Mottled reduced T1 bone marrow signal suggesting osteoprosis. Intervertebral discs demonstrate desiccation at all levels. [id number] analysis: T12-L1: There is no significant disc pathology. No spinal canal stenosis. No neural foraminal stenosis.No ligamentum flavum hypertrophy and facet joint arthropathy. L1-L2: There is no significant disc pathology. No spinal canal stenosis. No neural foraminal stenosis.No ligamentum flavum hypertrophy and facet joint arthropathy. L2-L3: There is no significant disc pathology. No spinal canal stenosis. No neural foraminal stenosis.No ligamentum flavum hypertrophy and facet joint arthropathy. L3-L4: There is a diffuse disc bulge measuring 2 mm, effacing the adjacent epidural fat and causing bilateral mild neural foraminal stenosis. No spinal canal stenosis. No ligamentum flavum hypertrophy. Mild bilateral facet joint arthropathy. L4-L5: There is a diffuse disc bulge measuring 2.5 mm with right foraminal herniation/osteophyte complex measures 5.9 mm, effacing the ventral epidural fat, abutting the theca and causing marked right and mild left neural foraminal stenosis. No spinal canal stenosis. No ligamentum flavum hypertrophy. Mild bilateral facet joint arthropathy. L5-S1: There is a small focal central disc protrusion measuring 1.5 mm, partially encroaching upon the ventral epidural fat, not touching the theca or inducing spinal/neural foramen compromise. No spinal canal stenosis. No neural foraminal stenosis.No ligamentum flavum hypertrophy. Mild bilateral facet joint arthropathy. Spinal Cord and Nerve Roots: Conus medullaris terminates at the L1 level without abnormality. Nerve roots appear unremarkable bilaterally. The lower thoracic spinal cord, conus medullaris, and cauda equina nerve roots are unremarkable. Soft Tissues: Paraspinal soft tissues appear normal without evidence of abnormal signal intensity or mass lesions. IMPRESSION: 1. 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 2. Mottled reduced T1 bone marrow signal suggesting osteoprosis. Minimal anterior height reduction of T11 body. Electronically signed by Angélica Hernández 09-18-2024 10:36 AM
[2024-09-19] MEDS: ROSUVASTATIN CALCIUM 5 MG TAB PO SCH (09:27)
[2024-09-19] MEDS: PANTOprazole 40 MG TAB PO SCH (09:28)
--- NOTE | 2024-09-19 10:30 | Orthopedic Progress Note ---
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 With him being on the IV steroids and Lyrica, he is already noticing improvement of the radicular component pain, with no pain at rest. Pain management has offered to see the patient in their office should the medications and other conservative interventions not be as effective as desired. They did discuss a lumbar FLORY, for which the patient was educated is a good option for him should that become the decision. Due to the improvement thus far, currently no spine surgery is indicated. Discussed with the patient that all conservative treatment options should be exhausted prior to further consideration of spine surgery. Continue to hold NSAIDs in case the patient's symptoms would worsen. Patient has a previously scheduled visit tomorrow with Dr. Cannon, and we discussed pushing this visit back maybe 2 weeks to allow the medications and therapy mobilization and exercises time to work prior to following up in the orthospine clinic. Did encourage the patient that if he has any spasm like sensations, he should consider using the tizanidine, as it can work in conjunction with the other medications for better symptom control. Will send a prescription for an extended oral Medrol taper that the patient can start onto once he is discharged. Additionally, we will prescribe a short course of tizanidine muscle relaxer, as well as the Lyrica so that he could eventually taper off. Ok for discharge when pain controlled for outpatient follow up. Subjective . Patient states his pain is much improved today. He actually has none sitting in the bedside chair. However, he is still experiencing quite a bit of symptoms when he is active. When pain is the worst, he continues to describe the symptomatology and a right sided L4 distribution pattern. Pain management has been by this morning and discussed a possible lumbar FLORY as outpatient due to a right sided foraminal disc extrusion at L4-5. They noted that this procedure would be pursued if the oral medications and other conservative measures are ineffective, or if they do not provide an adequate level of relief. Review of Systems All systems reviewed & are unremarkable except as noted in HPI & below. Physical Exam GENERAL: Speech and cognition is intact. Mood and affect is appropriate. Does not appear in acute distress. Sitting in bedside chair and appears relatively comfortable. HEAD: Normocephalic; atraumatic. NECK: Trachea is midline. CHEST: Regular chest respiration and excursion. EXTREMITIES: No TTP. Distal sensation and pulses intact bilaterally. NEURO: CN II-XII grossly intact with no focal deficits noted. Awake, alert, and oriented x 3. Sensation intact to light touch of the bilateral L2-S1 dermatomes, however diminished to right L4 at the anteromedial tibia (patient states an old injury to this area that affected his sensation, so unsure if this is chronic or new). Negative clonus bilaterally SKIN: No lesions, erythema, or rashes noted. LOWER EXTREMITIES: R Hip flexion 5/5; hip extension 5/5; knee extension 5/5; knee flexion 5/5; ankle dorsiflexion 5/5; ankle plantar flexion 5/5; EHL 5/5 L Hip flexion 5/5; hip extension 5/5; knee extension 5/5; knee flexion 5/5; ankle dorsiflexion 5/5; ankle plantar flexion 5/5; EHL 5/5 Results & Data Results & Data Laboratory Results . Diagnostic Findings . Lumbar Spine MRI 09/18/24 07:53 EXAM: MR lumbar spine wo con CLINICAL HISTORY: Severe LBP, R lumbar radiculitis. TECHNIQUE: [id number].[id number].5.1.1An MRI of the lumbar spine was performed without the administration of intravenous contrast. Sequences obtained include sagittal T1-weighted, T2-weighted, STIR (Short Tau Inversion Recovery), and axial T1 /OBX.5.1.1OBX.5.1.2 T2-weighted sequences. Images were sent through PACS for diagnostic interpretation./OBX.5.1.2/OBX.5.1 COMPARISON: Prior CT lumbar spine dated 09/16/2024 was reviewed. FINDINGS: Vertebral Alignment: Normal alignment of the lumbar spine without evidence of fracture or malalignment. No evidence of scoliosis is observed. Straightened lumbar lordosis likely denoting myospasm. Vertebral Bodies and Intervertebral Discs: Minimal anterior height reduction of T11 body. Normal other vertebral body height, no fracture identified. No lytic or sclerotic lesions. Small marginal osteophytes and minimal fatty marrow degeneration of the opposing vertebral endplates. Mottled reduced T1 bone marrow signal suggesting osteoprosis. Intervertebral discs demonstrate desiccation at all levels. Mgeba-ba-abjqt analysis: T12-L1: There is no significant disc pathology. No spinal canal stenosis. No neural foraminal stenosis.No ligamentum flavum hypertrophy and facet joint arthropathy. L1-L2: There is no significant disc pathology. No spinal canal stenosis. No neural foraminal stenosis.No ligamentum flavum hypertrophy and facet joint arthropathy. L2-L3: There is no significant disc pathology. No spinal canal stenosis. No neural foraminal stenosis.No ligamentum flavum hypertrophy and facet joint arthropathy. L3-L4: There is a diffuse disc bulge measuring 2 mm, effacing the adjacent epidural fat and causing bilateral mild neural foraminal stenosis. No spinal canal stenosis. No ligamentum flavum hypertrophy. Mild bilateral facet joint arthropathy. L4-L5: There is a diffuse disc bulge measuring 2.5 mm with right foraminal herniation/osteophyte complex measures 5.9 mm, effacing the ventral epidural fat, abutting the theca and causing marked right and mild left neural foraminal stenosis. No spinal canal stenosis. No ligamentum flavum hypertrophy. Mild bilateral facet joint arthropathy. L5-S1: There is a small focal central disc protrusion measuring 1.5 mm, partially encroaching upon the ventral epidural fat, not touching the theca or inducing spinal/neural foramen compromise. No spinal canal stenosis. No neural foraminal stenosis.No ligamentum flavum hypertrophy. Mild bilateral facet joint arthropathy. Spinal Cord and Nerve Roots: Conus medullaris terminates at the L1 level without abnormality. Nerve roots appear unremarkable bilaterally. The lower thoracic spinal cord, conus medullaris, and cauda equina nerve roots are unremarkable. Soft Tissues: Paraspinal soft tissues appear normal without evidence of abnormal signal intensity or mass lesions. IMPRESSION: 1. 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 2. Mottled reduced T1 bone marrow signal suggesting osteoprosis. Minimal anterior height reduction of T11 body. Electronically signed by Angélica Hernández 09-18-2024 10:36 AM PG Care Time/CCT Total # of Minutes Spent Total Time Spent with Patient: Total time spent is greater than 50% in coordination of care (as documented) at patient's floor/unit and/or counseling patient: Coding Level of Care Code 32788 SUB INP/OBS CARE 08/20MIN Diagnoses Right lumbar radiculitis M54.16 Intractable low back pain M54.59 Displacement of lumbar intervertebral disc with myelopathy M51.06
[2024-09-19] MEDS: tiZANidine HCL 4 MG TABLET PO PRN (12:14)
--- NOTE | 2024-09-19 15:49 | Hospitalist Progress Note ---
Date of Service September 19, 2024 Assessment & Plan (1) Right lumbar radiculitis: Plan This is an 68 year old male with past medical history of OA, HLD who presented to the ED on 09/18 for continued complaints of right back/hip/leg pain. Patient w/ failure of outpatient management of pain including Tylenol, Ibuprofen, Prednisone, and Tramadol. #Right lumbar Radiculitis Hip/pelvic CT 09/16 - mild-moderate OA right hip joint. No fractures within pelvis/hip Lumbar CT 09/16 - right lateral disc protrusion at L4-L5 could result in right L4 or L5 radiculopathy in appropriate clinical context. Lumbar MRI 09/18 - mild lumbar spondylodegenerative changes w/ disc pathologies at L3/4 down to L5/S1. More evident at L4-L5 w/ right foraminal herniation/osteophyte complex causing marked right neural foraminal stenosis. Mottled reduced T1 bone marrow signal suggesting osteoporosis. minimal anterior height reduction of T11 body Ortho-spine consulted - recommending maximizing PO medication & pain management Pain management consulted - recommending maximizing PO medication, discussed w/ PA that patient will require an insurance auth prior to injection which could take up to a week to get approved. Continue scheduled Tylenol and ibuprofen Lyrica 75mg BID Dexamethasone 10mg IV q8h Oxycodone 5mg q4h prn Flexeril 10mg BID prn PT/OT consulted - consider short term rehab if patient cannot have pain under control. Chronic conditions: HLD: statin DVT prophylaxis: SCD's, hold chemical in event of surgery Code: DNR/DNI Case discussed w/ pain management ELISABET 09/19. Admission and Anticipated Discharge Date Admission Date: September 18, 2024 Subjective Patient seen and examined this afternoon. Patient reports he feels not much improvement from yesterday. He reports he is able to walk to the bathroom but has to remain hunched over. Patient reports as soon as he stands up he experiences severe pain. He does not feel his current regimen is working. Physical Exam Constitutional: WD/WN, vitals as above Eyes: PERRL, conjunctivae normal, anicteric sclerae Respiratory: breathing unlabored Cardiovascular: well perfused Musculoskeletal: moves all extremities Psychiatric: A+Ox3, euthymic affect Results & Data Results & Data Vital Signs (Past 12 Hours) Vital Signs Temp Pulse Resp BP Pulse Ox O2 Del Method 02/24/25 14:18 36.5 C 58 L 16 103/61 93 Room Air 09/19/24 08:15 Room Air 09/19/24 07:26 36.7 C 63 16 142/76 H 94 Room Air PG Care Time/CCT Total # of Minutes Spent Total Time Spent with Patient: Total time spent is greater than 50% in coordination of care (as documented) at patient's floor/unit and/or counseling patient: Coding Level of Care Code 83034 SUB INP/OBS CARE 2/35MIN Diagnoses Right lumbar radiculitis M54.16
[2024-09-20 07:16] VITALS: RESP 16
[2024-09-20] MEDS: DOCUSATE SODIUM/SENNA 50/8.6MG TAB PO SCH (08:04)
--- NOTE | 2024-09-20 08:48 | Pain Management Progress Note ---
Date of Service September 20, 2024 Assessment & Plan (1) Right lumbar radiculitis: Plan 1. Continue Lyrica 75mg BID, Oxycodone 5mg Q4 PRN, and Tizanidine 4mg TID. 2. Continue IV Dexamethasone. 3. Once the patient is discharged to home, arrangements will be made for the patient to come to the pain clinic for a new patient appointment and will then be arranged for an epidural steroid injection on a separate day. Admission and Anticipated Discharge Date Admission Date: September 18, 2024 Subjective Patient is reporting very mild improvement of symptoms. He is able to ambulate to the bathroom and back with the assistance of a walker. Tolerating medication regimen of Lyrica, oxycodone, tizanidine. Continues to work with physical therapy on improving ambulation. Physical Exam Physical Exam: GENERAL: This is a 68-year-old male in no acute distress. Sitting comfortably in the hospital bed eating breakfast. HEAD/FACE: Normocephalic and atraumatic. EYES: No drainage or conjunctival injection. ENT: Nose without bleeding or discharge. Oral mucosa moist. NECK: Full ROM without apparent pain. No swelling or masses noted. RESPIRATORY: Patient with unlabored breathing. No signs of respiratory distress. CHEST/AXILLA: Chest movement symmetrical. No deformities noted. ABDOMEN/GI: No distension BACK: Moves without difficulty SKIN: [place], warm and dry. No rash noted. MS/EXTREMITY: No swelling, no deformities. Moving extremities appropriately. NEURO: Alert and appears oriented. Speech is fluent. Cranial Nerves are grossly intact. PSYCH: Alert, pleasant, affect is calm
[2024-09-20] MEDS: oxyCODONE HCL IR 5 MG TAB (IMMEDIATE RELEASE) PO PRN ×2 (12:36→17:56)
--- NOTE | 2024-09-20 12:47 | Orthopedic Progress Note ---
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 We did discuss the possibility of surgery during his inpatient vs epidural injection. At this point, the patient prefers to continue to see how the medications help with his pain. He wishes to pursue the option of a lumbar FLORY as an outpatient at the pain management clinic prior to proceeding with any spine surgery. It is our recommendation that he pursue the pain management option at this point. From an orthospine standpoint, the patient is ok for discharge when pain is controlled to the point that he can safely be discharged for outpatient follow up. Subjective Patient states his pain remains improved, but only at rest. He really denies much of any pain when seated in a chair. However, when attempting to stand or ambulate or work with physical therapy, he begins to have severe pain. Again, when pain is the worst, he continues to describe the symptomatology in a right sided L4 distribution pattern. Pain management has stopped by again this morning and further discussed a possible lumbar FLORY as outpatient due to a right sided foraminal disc extrusion at L4-5. They have noted that the patient would need to be discharged, and once that occurs, they could get him set up with an outpatient visit at the pain clinic, and then after that initial consult visit, they would set him up for a lumbar FLORY. It is noted that the insurance authorization for an injection could take a week or more. That scenario was dis cussed in detail with the patient today, as well as his options for lumbar spine surgery should his pain remain severe enough that he could not be discharged. The patient did relate to me today that he wished to pursue a lumbar FLORY prior to proceeding with surgery. Review of Systems All systems reviewed & are unremarkable except as noted in HPI & below. Physical Exam GENERAL: Speech and cognition is intact. Mood and affect is appropriate. Does not appear in acute distress. Sitting in bedside chair and appears relatively comfortable. HEAD: Normocephalic; atraumatic. NECK: Trachea is midline. CHEST: Regular chest respiration and excursion. EXTREMITIES: No TTP. Distal sensation and pulses intact bilaterally. NEURO: CN II-XII grossly intact with no focal deficits noted. Awake, alert, and oriented x 3. Sensation intact to light touch of the bilateral L2-S1 dermatomes, however diminished at baseline to right L4 at the anteromedial tibia. Negative clonus bilaterally SKIN: No lesions, erythema, or rashes noted. LOWER EXTREMITIES: R Hip flexion 5/5; hip extension 5/5; knee extension 5/5; knee flexion 5/5; ankle dorsiflexion 5/5; ankle plantar flexion 5/5; EHL 5/5 L Hip flexion 5/5; hip extension 5/5; knee extension 5/5; knee flexion 5/5; ankle dorsiflexion 5/5; ankle plantar flexion 5/5; EHL 5/5 Results & Data Results & Data Laboratory Results . Diagnostic Findings . PG Care Time/CCT Total # of Minutes Spent Total Time Spent with Patient: Total time spent is greater than 50% in coordination of care (as documented) at patient's floor/unit and/or counseling patient: Coding [place] [address] SUB INP/OBS CARE 2/35MIN Patient Type Established Medical Decision Making Moderate Complexity Diagnoses Right lumbar radiculitis M54.16 Intractable low back pain M54.59 Displacement of lumbar intervertebral disc with myelopathy M51.06
--- NOTE | 2024-09-20 21:51 | Hospitalist Progress Note ---
Date of Service September 20, 2024 Assessment & Plan (1) Right lumbar radiculitis: Plan This is an 68 year old male with past medical history of OA, HLD who presented to the ED on 09/18 for continued complaints of right back/hip/leg pain. Patient w/ failure of outpatient management of pain including Tylenol, Ibuprofen, Prednisone, and Tramadol. Hip/pelvic CT 09/16 - mild-moderate OA right hip joint. No fractures within pelvis/hip Lumbar CT 09/16 - right lateral disc protrusion at L4-L5 could result in right L4 or L5 radiculopathy in appropriate clinical context. Lumbar MRI 09/18 - mild lumbar spondylodegenerative changes w/ disc pathologies at L3/4 down to L5/S1. More evident at L4-L5 w/ right foraminal herniation/osteophyte complex causing marked right neural foraminal stenosis. Mottled reduced T1 bone marrow signal suggesting osteoporosis. minimal anterior height reduction of T11 body #Right lumbar Radiculitis Orthospine consulted, appreciate recommendations Pain management consulted, appreciate recommendations Plan to maximize pain regimen and proceed with EIS outpatient with pain management prior to proceeding with surgical intervention Oxycodone increased to 5-10 mg for moderate-severe pain Continue scheduled Tylenol and ibuprofen, Lyrica 75mg BID, Flexeril 10mg BID prn Dexamethasone 10mg IV q8h discontinued by ortho PT/OT asked to re-eval patient to determine if he can return home or will need rehab placement Chronic conditions: HLD: continue statin DVT prophylaxis: SCD's, hold chemical in event of surgery Code: DNR/DNI Dispo: Continue to optimize pain regimen, awaiting re-evals from PT/OT Increased oxycodone Discussed case with ortho and pain management Updated at bedside Discussed discharge planning with case management Admission and Anticipated Discharge Date Admission Date: September 18, 2024 Supervising Physician Co-Signing Physician Notes I personally saw and examined the patient. I independently reviewed the labs, imaging, problem list, medication list. I verified all gutierres points and agree with Genesis Quiñonez PA-C with the following exceptions and/or additions: I met Xavier on admission as the supervising physician and he appeared very motivated to go home if possible and follow-up as an outpatient. However his pain is not controlled and he is using his right leg when ambulating around the room with a walker. We discussed extensively epidural spinal injections versus surgery. My concern is that his current state I am not sure he is really able to participate in physical therapy to the extent he would need to to improve due to the severity of his pain. I think at this point surgery seems like a reasonable option however he wishes to try to go home and try epidural spinal injections initially. I am not sure physical and Occupational Therapy have adequately assessed him for the discharge at this time as case management note shows home without services. I would highly recommend he gets physical therapy at home if he was to be discharged home although from my exam of watching him used to walk around the room he may benefit from inpatient rehab. We will ask him to be reassessed tomorrow and take it from there. Subjective Patient seen and evaluated at bedside this morning with his present. He reports that his pain is controlled at rest 0-1/10, but uncontrolled pain 7/10 with ambulation/activity. He has not yet had a BM, reports he took a laxative this morning. He states he is confused regarding the plan moving forward as he feels that he has received conflicting recommendations from ortho and pain management. Informed patient I will discuss with the specialists and confirm a plan. Returned to bedside in afternoon with attending physician, Dr. Darnell. We discussed the conversation I had with ortho and pain management. Xavier walked a round the room with limited mobility with rolling walker. He states he would like to try the epidural injection prior to proceeding with surgical intervention. Will ask PT/OT to re-eval to determine if patient can return home (1 step to enter main floor) vs needing rehab. No additional complaints or concerns at this time. Physical Exam Physical Exam: General: No acute distress, nondiaphoretic, well-developed, well-nourished. Cardiac: Well perfused. Rates in the 60s. Pulm: Normal respiratory effort. 94% on room air. Abdominal: Soft, nontender, nondistended. Bowel sounds present. Neuro: A&O x3. No focal neurological deficits. Back: No spinal tenderness. MSK/Extremities: Normal strength and sensation in LE bilaterally. Favors LLE with ambulation. Results & Data Results & Data Vital Signs (Past 12 Hours) Vital Signs Temp Pulse Resp BP BP Pulse Ox O2 Del Method 09/20/24 20:00 98.2 F 62 16 108/49 L 94 Room Air 09/20/24 15:07 97.9 F 68 16 128/75 95 Room Air PG Care Time/CCT Total # of Minutes Spent Total Time Spent with Patient: Total time spent is greater than 50% in coordination of care (as documented) at patient's floor/unit and/or counseling patient: Coding Level of Care Code 05542 SUB INP/OBS CARE 3/50MIN Diagnoses Right lumbar radiculitis M54.16
--- NOTE | 2024-09-21 08:33 | Pain Management Progress Note ---
Date of Service September 21, 2024 08:15 Assessment & Plan (1) Right lumbar radiculitis: Plan: * Had a lengthy discussion with the patient and his spouse this morning regarding his treatment alternatives. He prefers to try interventional pain management prior to considering surgery. * He is agreeable to be discharged today on oral oxycodone, tizanidine and pregabalin. * He will be scheduled undergo right L4/L5 transforaminal epidural steroid injection tomorrow in the pain clinic. Risks, benefits, alternatives discussed with the patient and his spouse. They are questions answered and he would like to proceed with the injection. Preprocedure instructions given. Present on Admission?: Yes Admission and Anticipated Discharge Date Admission Date: September 18, 2024 Subjective Patient was seen this morning for follow-up. He reports mild improvement in his radicular symptoms and that he has minimal pain in sitting position and less pain when he ambulates and bears weight on his right lower extremity. He reports less spasms in the lumbar spine. Pain is predominantly in the right lower back rating to the lateral aspect of his right thigh up to the knee. Denies any numbness, weakness, bowel or bladder incontinence. Has not required any oxycodone since yesterday evening and had his last dose of IV steroids yesterday. Overall, he notes some improvement. PG Care Time/CCT Total # of Minutes Spent Total Time Spent with Patient: Total time spent is greater than 50% in coordination of care (as documented) at patient's floor/unit and/or counseling patient: Coding Level of Care Code 97356 SUB INP/OBS CARE 08/20MIN Diagnoses Right lumbar radiculitis M54.16
[2024-09-21] MEDS: POLYETHYLENE (MIRALAX) 17 GM PACK PO SCH (10:00)
--- NOTE | 2024-09-21 10:10 | Orthopedic Progress Note ---
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 I do agree that as he is having significant improvement in his symptoms over the last few days it is a good idea to proceed with epidural injection. Grossly he is neurologically intact and making progress. Encouraged that he should be involved in outpatient physical therapy, get the epidural injection. I would plan to see him back about 2 weeks after the epidural injection. Subjective HPI: Patient was examined this morning, continues to have significant pain improvement over the last few days with steroid and neurolytic medications. Most of the pain is now associated with activity. He has discussed with pain management and would like to proceed with outpatient epidural injection. Review of Systems All systems reviewed & are unremarkable except as noted in HPI & below. Physical Exam Constitutional: Well developed, appears stated age Psych: patient is coherent and answers questions appropriately, normal affect Eye: Normal gaze, no redness to sclera, pupils round and equal Pulm: Normal respiratory effort, no wheezing Cardiovascular: no significant peripheral edema, palpable DP/PT pulses Skin shows no rashes, lesions No midline or paraspinal tenderness with palpation over the lumbar spine, no stepoffs Motor strength is 5/5 in bilateral hip flexors, quadriceps, tibialis anterior, extensor hallucis longus, and gastroc/soleus complex Sensation intact to light touch in the L2-S1 dermatomes bilaterally Results & Data Results & Data Laboratory Results . Diagnostic Findings . PG Care Time/CCT Total # of Minutes Spent Total Time Spent with Patient: Total time spent is greater than 50% in coordination of care (as documented) at patient's floor/unit and/or counseling patient: Coding Level of Care Code 68381 SUB INP/OBS CARE 08/20MIN Diagnoses Right lumbar radiculitis M54.16 Intractable low back pain M54.59 Displacement of lumbar intervertebral disc with myelopathy M51.06
[2024-09-21 13:38] VITALS: BP 126/82; PULSE 87; TEMP 97.9; O2SAT 96
--- NOTE | 2024-09-21 17:41 | Discharge Summary ---
Discharge Summary Date of Service September 21, 2024 Principal Dx & Hospital Course #1 = Principal Diagnosis (1) Right lumbar radiculitis: Plan This is an 68 year old male with past medical history of OA, HLD who presented to the ED on 09/18 for continued complaints of right back/hip/leg pain. Patient w/ failure of outpatient management of pain including Tylenol, Ibuprofen, Prednisone, and Tramadol. Hip/pelvic CT 09/16 - mild-moderate OA right hip joint. No fractures within pelvis/hip Lumbar CT 09/16 - right lateral disc protrusion at L4-L5 could result in right L4 or L5 radiculopathy in appropriate clinical context. Lumbar MRI 09/18 - mild lumbar spondylodegenerative changes w/ disc pathologies at L3/4 down to L5/S1. More evident at L4-L5 w/ right foraminal herniation/osteophyte complex causing marked right neural foraminal stenosis. Mottled reduced T1 bone marrow signal suggesting osteoporosis. minimal anterior height reduction of T11 body #Right lumbar Radiculitis Orthospine and pain management followed along while hospitalized to coordinate care Plan is to maximize pain regimen and proceed with FLORY outpatient with pain management prior to proceeding with surgical intervention Pain decently controlled with current regimen that was continued on discharge Continue scheduled Tylenol 1000 mg q8h, Lyrica 75 mg bid, Medrol taper, Zanaflex TID prn muscle spasms, oxycodone 5-10 mg q4h prn mod-severe pain Cleared by PT to return home Scheduled for FLORY with pain management 09/22/24 Recommend follow-ups with orthospine, PCP, and pain management outpatient Chronic conditions: HLD: continue statin DVT prophylaxis: SCD's Code: DNR/DNI Dispo: Discharged home 09/21 Notes For Next Care Provider Consider surgical intervention with orthospine if no relief from FLORY with pain management Medication Changes From Visit Lyrica 75 mg twice daily Medrol taper Zanaflex 3 times daily as needed muscle spasm Oxycodone 5-10 mg every 4 hours as needed moderatesevere pain Admission HPI Per Admitting Provider This is an 68 year old male with past medical history of OA, HLD who presented to the ED on 09/18 for continued complaints of right back/hip/leg pain. The patient was seen and examined, present. Patient reports that ~ 1 week ago he walked 4 miles at a quicker pace then usual. He then reports the following day he woke up in pain. He saw his PCP this past Thursday for this and was prescribed corticosteroids and tramadol. He was alternating Tylenol and ibuprofen every 4 hours as well. He then saw his PCP this past Thursday for continued symptoms and was referred for an x-ray. He was then referred to the ER from x-ray as he could not lie flat to take the imaging. He was then discharged. He reports this morning he was sleeping on the couch as he cannot get into bed at this time and could not get up to walk. EMS was then summoned and he was transported here. He reports he has attempted to walk with a walker in his room but is only able to walk a few steps and has to be hunch over. He reports it is painful to walk. He reports his pain 6/10. He denies any incontinence of bladder or bowel. He does report some right logan numbness which he stated was new for him today. While in the ED he underwent a lumbar MRI that revelaed L4-L5 foraminal herniation/ostephyte complex causing maked right neural foraminal stenosis. He was given dexamethasone, Toradol, Dilaudid, Lyrica, and Valium in the ED. Code status discussed and he reports he is a DNR/DNI status. Discharge Exam General: No acute distress, nondiaphoretic, well-developed, well-nourished. Cardiac: Well perfused. Rates in the 60s. Pulm: Normal respiratory effort. 94% on room air. Abdominal: Soft, nontender, nondistended. Bowel sounds present. Neuro: A&O x3. No focal neurological deficits. Back: No spinal tenderness. MSK/Extremities: Normal strength and sensation in LE bilaterally. Discharge Plan Discharge Items Patient Disposition: Home - Self-Care Reason For Visit: BACK PAIN Discharge Diagnosis: Right lumbar radiculitis Activity: Per Instructions section Non-emergency contact: Primary Care Provider, Surgeon and Pain Management Call non-emergency contact if: you have any medication questions, your symptoms worsen and your pain is not controlled Follow-up/Referrals: Renan Davila MD [Primary Care Provider] - 09/27/24 12:00 pm (Follow-up in 1-2 weeks) Edilberto Johnson MD, FIPP [Physician] - 09/22/24 (Follow-up as scheduled) Adrián Cannon MD [Surgeon] - (f/u in spine clinic ~2 weeks after discharge) Diet: Regular Addtl Attending Provider Instructions: Xavier, You were admitted to the hospital due to severe lumbar back pain. You had an MRI of your lumbar spine which revealed marked right neural foraminal stenosis, which explains your symptoms of severe right back/hip/leg pain. Your medical pain regimen was optimized during this hospitalization, and you were also evaluated by PT/OT who felt you are safe to return home. You were evaluated by the pain management specialists as well as the orthopedic spine surgical specialists. You have been scheduled for an epidural steroid injection (FLORY) at the pain management clinic tomorrow, 09/22/2024. Your prescriptions have been sent to the [facility] pharmacy on [facility]. Upon discharge from the hospital: * Take Tylenol 1000 mg every 8 hours. Use this as your first-line pain medication. * Take the Medrol (oral steroid) taper as directed on the package insert. * Take Lyrica 75 mg twice daily. This helps with nerve pain. * Take Zanaflex 4 mg 3 times daily NEEDED for muscle spasms. * Take oxycodone 5-10 mg every 4 hours NEEDED for severe pain. This is a narcotic pain medication, so do NOT drive or operate heavy machinery while taking this. * Recommend following a bowel regimen (MiraLAX, Senna, docusate, etc.) to prevent constipation while taking pain medication. These are available over the counter (OTC), so no prescription is needed. * Follow-up with the pain management clinic as scheduled tomorrow 09/22/24 for your epidural steroid injection. * Follow-up with your PCP in 1-2 weeks. * Follow-up with the ortho spine surgical team as scheduled. It was a pleasure taking care of you while you were in the hospital! Pending Studies at Discharge: No Stand-Alone Forms: My Guide, Smoking Cessation Medications and DC Order Prescriptions: New pregabalin [Lyrica] 75 mg Capsule 75 mg PO BID Qty: 60 0RF tizanidine 4 mg Tablet 4 mg PO TID PRN (Reason: muscle spasticity) 10 Days Qty: 30 0RF methylprednisolone [Medrol] 4 mg tablet See Rx Instructions .ROUTE .COMPLEX 18 Days Qty: 63 0RF Rx Instructions: 4 mg tabs orally; 18-day taper -- 6 tabs (24 mg) x 3 days, then 5 tabs (20 mg) x 3 days, then 4 tabs (16 mg) x 3 days, then 3 tabs (12 mg) x 3 days, then 2 tabs (8 mg) x 3 days, then 1 tab (4 mg) x 3 days acetaminophen [Tylenol Extra Strength] 500 mg Tablet 1,000 mg PO Q8H Qty: 90 0RF polyethylene glycol 3350 [Miralax] 17 gram Powder In Packet 17 g PO DAILY Qty: 30 0RF sennosides-docusate sodium [Senokot-S] 8.6-50 mg Tablet 1 tab PO QAM Qty: 20 0RF oxycodone 5 mg tablet 5 - 10 mg PO Q4H PRN (Reason: severe pain (scale score 7-10)) Qty: 14 0RF Continued pantoprazole 40 mg tablet,delayed release (DR/EC) 40 mg PO DAILY Qty: 90 3RF rosuvastatin 5 mg tablet 5 mg PO DAILY Qty: 90 3RF albuterol sulfate 90 mcg/actuation HFA aerosol inhaler 2 puff inhalation Q6H PRN (Reason: shortness of breath or wheezing) Qty: 8.5 0RF ibuprofen [Advil] 200 mg Tablet 200 mg PO Q6H PRN (Reason: Pain) Held tramadol 50 mg tablet 50 mg PO BID PRN (Reason: pain) Qty: 30 0RF Hold Instructions: Provider's Order Discontinued prednisone 20 mg tablet 40 mg PO DAILY 5 Days Qty: 10 0RF Rx Instructions: Start Date 09/14/24 x5 day supply acetaminophen [Tylenol Ex Str Rapid Release] 500 mg Tablet 500 mg PO Q6H PRN (Reason: Pain) Discharge Orders: Discharge Order (Routine); Ordered 09/21/24 Ordered By: Genesis Pennington/Other Patient Handouts: Relieving Back Pain Admission Data Admit Date/Time: 09/18/24 13:24 Attending Provider: Ruben Alcaraz Admit Provider: Pavel Darnell Primary Care Provider: Renan Davila Other Providers: Yogi Suggs; Danica Erwin; Edilberto Johnson; Adrián Yang; Olamide Rome; Hima Lake; Adrián Cannon Other Interventions: Discharge Summary Assessment (RN) Last Done: 09/21/24 11:46 Hospital Stay Data Consultations 09/18/24 12:42 ED Decision to Admit Stat 09/18/24 12:45 Consult Orthopedic Spine Surgery Stat 09/18/24 13:41 Consult Pain Management Routine 09/18/24 14:38 Consult Pain Management Routine Diagnostic Imagining Performed 09/18/24 07:53 MRI Lumbar Spine [MR lumbar spine wo con] Stat Pending Results Patient Have Any Pending Studies at Discharge: No Discharge Instructions Given to Patient (Per Discharging Provider) Manuel [place] were admitted to the hospital due to severe lumbar back pain. You had an MRI of your lumbar spine which revealed marked right neural foraminal stenosis, which explains your symptoms of severe right back/hip/leg pain. Your medical pain regimen was optimized during this hospitalization, and you were also evaluated by PT/OT who felt you are safe to return home. You were evaluated by the pain management specialists as well as the orthopedic spine surgical specialists. You have been scheduled for an epidural steroid injection (FLORY) at the pain management clinic tomorrow, 09/22/2024. Your prescriptions have been sent to the [facility] pharmacy on [address] Upon discharge from the hospital: * Take Tylenol 1000 mg every 8 hours. Use this as your first-line pain medication. * Take the Medrol (oral steroid) taper as directed on the package insert. * Take Lyrica 75 mg twice daily. This helps with nerve pain. * Take Zanaflex 4 mg 3 times daily NEEDED for muscle spasms. * Take oxycodone 5-10 mg every 4 hours NEEDED for severe pain. This is a narcotic pain medication, so do NOT drive or operate heavy machinery while taking this. * Recommend following a bowel regimen (MiraLAX, Senna, docusate, etc.) to prevent constipation while taking pain medication. These are available over the counter (OTC), so no prescription is needed. * Follow-up with the pain management clinic as scheduled tomorrow 09/22/24 for your epidural steroid injection. * Follow-up with your PCP in 1-2 weeks. * Follow-up with the ortho spine surgical team as scheduled. It was a pleasure taking care of you while you were in the hospital! Total Time Total Time Spent Total Time Spent (In Minutes): Greater than 30 minutes spent completing this discharge process including direct patient care, medication reconciliation, documentation, review of labs and images, and coordination of care. Coding Level of Care Code 86637 INP/OBS DISCH >30 MIN Diagnoses Right lumbar radiculitis M54.16
== END 2024-09-21 12:25 | disposition home or self-care (01) | DRG 552 ==
LOC: ED 07:29 → 3E 13:24 → SUATTDRO 13:24 → 3E 14:12
DX: M51.06 Intervertebral disc disorders with myelopathy, lumbar region; M25.78 Osteophyte, vertebrae; Z66 Do not resuscitate; Z79.899 Other long term (current) drug therapy; M99.73 Connective tissue and disc stenosis of intervertebral foramina of lumbar region; Z88.1 Allergy status to other antibiotic agents; M51.26 Other intervertebral disc displacement, lumbar region; M16.11 Unilateral primary osteoarthritis, right hip; E78.5 Hyperlipidemia, unspecified; M54.16 Radiculopathy, lumbar region